=== PATIENT | male | born 2005 | race Caucasian/White ===

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

== ENCOUNTER 2025-04-23 11:17 | Emergency (ER) | payer BC, SELFPAY ==
[2025-04-23 11:22] VITALS: BP 142/82; PULSE 68; RESP 18; TEMP 37; O2SAT 100; BMI 18.5
--- OUTSIDE RECORDS SUMMARY | 2025-04-23 11:23 | XMS_ITS | Clinical Summary ---
Author Organization [facility] Address [facility] [place] [address] Care Team Providers Care Tube Room Cashier Name Role Phone Sreekanth Wilkes MD Primary Care Provider [phone] Allergies No known active allergies Medications lisdexamfetamine 30 mg capsuleIndications :ADHD (attention deficit hyperactivity disorder), inattentive type Take 1 Capsule (30 mg) by mouth once daily. 30 Capsule 5 Active Active Problems Problem Noted Date Diagnosed Date ADHD (attention deficit hype ractivity disorder), inattentive type 09/10/2015 Allergy, unspecified not elsewhere classified Overview (11/23/2007): Large local reaction to bug bites Resolved Problems Problem Noted Date Diagnosed Date Resolved Date Molluscum contagiosum 07/13/20112024 Toxic effect of venom(989.5) 11/23/2007 11/30/2024 Encounters Date Type Department Care Team Description 04/23/2025 Nurse Triage [facility] [address] [place] [address] Sreekanth Wilkes MD Chest Pain/problem (Clicking during heart beat audible over phone) from Last 3 Months Immunizations Immunization Administration Dates Next Due AMB Influenza, IIV4 PF (=>6 mos Flulaval,Fluzone Fluarix)(Flu Clinic Only) 06/14/2014 COVID-19 vaccine ([place] NTech 30mcg/0.3mL) PF, MDV 12/06/2020,11/15/2020,11/15/2020 DTaP 03/05/2006 [id number] (Pediarix) 05/22/2005,03/19/2005,0 01/15/2005 DTaP-IPV (Kinrix) 11/18/2009 HIB HbOC (HibTITER) 03/05/2006 HIB PRP-T (ActHIB,Hiberix) 03/19/2005,01/15/2005 HPV 9 (Gardasil 9) 11/09/2016,03/16/2016, 016 Hepatitis A (Peds) 06/25/2008,11/21/2007 Influenza Virus, Unspecified 04/17/2013 Influenza, IIV3 (Age 6-35 mos) 05/17/2006 Influenza, IIV3 (Age >=3 years) 04/13/20 11,05/24/2010,05/22/2008,06/16 Influenza, IIV4 05/08/2022, 8,06/11/2017,03/16 Influenza,LAIV3 Live Intrana xiao (Flumist) 05/05/2012,03/29/2009 Influenza,LAIV4 Live Intrana xiao (Flumist) 06/18/2015 MENINGOCOCCAL VACCINE 2 VIAL [id number] (MENVEO) 11/14/2021,01/17/2016 MMR 11/18/2009,11/17/2005 Pneumococcal conj 7-Valent (Prevnar 7) 0 03/05/2006,05/22/2005,03/19/2005,01/15 Tdap 01/17/2016 Varicella Vaccine 11/18/2009,11/17/2005 Family History Medical History Relation Name Comments Good Health Brother Psychiatric illness Father possible adhd Psychiatric illness Maternal Aunt adhd Good Health Mother Psychiatric illness Other maternal cousins Good Health Sister Heart Disease No Family History Relation Name Status Comments Brother Father Maternal Aunt Mother Other Sister Social History Tobacco Use Types Packs/Day Years Used Date Smoking Tobacco: Never Passive Smoke Exposure: Never Smokeless Tobacco: Never Tobacco Cessation:Counseling Given: Not Answered Comments:no exposure Alcohol Use Standard Drinks/Week Comments Yes 0 (1 standard drink = 0.6 oz pur e alcohol) Once or twice a month PHQ-2 Answer Date Recorded PHQ-2 TOTAL SCORE 0 11/30/2024 Social Connections Answer Date Recorded Do you often feel lonely or isolated from those around you? 0 11/30/2024 Alcohol Use Answer Date Recorded How often do you have a drink containing alcohol ? 3 11/30/2024 How many drinks containing a lcohol do you have on a typical day when you are drinking? 0 11/30/2024 How often do you have five or more drinks on one occasion? 2 11/30/2024 Financial Resource Strain Answer Date R ecorded Difficulty of Paying Living Expenses 3 11/28/2023 Difficulty of Paying Living Expenses Not on file 11/28/2023 Food Insecurity Answer Date Recorded Do you worry your food will run out before you are able to buy more? 1 11/30/2024 Transportation Needs Answer Date Record ed Does lack of transportation keep you from medica l appointments? 1 11/30/2024 Does lack of transportation keep you from work, meetings or getting things that you need? 1 11/30/2024 Housing Stability Answer Date Recorded What is your housing situation today? 1 11/30/2024 Utilities Answer Date Recorded Do you have trouble paying f or utilities (for example, heat, electricity, water, phone)? 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 Gender Identity Not on file Sexual Orientation Not on file Obstetrics History Last Filed Vital Signs Vital Sign Reading Time Taken Comments Blood Pressure 103/55 11/30/2024 10:30 AM CDT Pulse 48 11/30/2024 10:30 AM CDT Temperature 36.8 C (98.2 F) 11/28/2023 11:59 AM CDT Respiratory Rate 14 11/28/2023 11:5 9 AM CDT Oxygen Saturation 99% 11/30/2024 10: 30 AM CDT Inhaled Oxygen Concentration - - Weight 73.9 kg (162 lb 14.4 oz) 025 10:30 AM CDT Height 203.5 cm (6' 8.12) 11/30/2024 1 0:30 AM CDT Body Mass Index 17.84 11/30/2024 10:30 AM CDT Plan of Treatment Health Maintenance Due Date Last Done Comments COVID-19 vaccine series ( season) 2025 07/09/2021, 12/06/2020, 11/15/2020, Additional history exists Influenza Vaccine (#1) 2025 , 05/31/2018, 06/11/2017, Additional history exists BMI (ht and wt on same day) for age 18+ 11/30/2025 11/30/2024 Depression screening for age 12+ 11/30/2025 11/30/2024, 11/14/2021, 03/15/2021, Additional history exists Well Child Check for age 3-20 11/30/2025 11/30/2024, 11/14/2021, 10/01/2020, Additional history exists Tetanus booster 01/16/2026 01/17/2016 RSV vaccine for adults or (1 - 1-dose 75+ series) 11/14/2079 Hepatitis B series for 19+ Completed 05/22, 03/19/2005, 01/15/2005 Pneumococcal series for age 6-49 Aged Out 03/05/2006, 05/22/2005, 03/19/2005, Additional history exists No longer eligible based on patient's age to complete this topic HPV series for age 9-45 Completed 11/10/19 17, 03/16/2016, 01/17/2016 Meningococcal series for age 11-21 Completed 11/14/2021, 01/17/2016 HIV for age 15-65 Completed 11/30/2024 Hepatitis C screening for age 18-79 Completed 11/30/2024 Procedures Procedure Name Priority Date/Time Associated Diagnosis Comments ANTI HIV 1/2 Routine 11/30/2024 11:09 AM CDT Screening for HIV (human immunodeficiency virus) ANTI HCV Routine 11/30/2024 11:09 AM CDT Need for hepatitis C screening test from Last 3 Months or Most Recently Relevant to Health Maintenance Results * ANTI HCV (11/30/2024 11:09 AM CDT) HEPATITIS C ANTIBODY NON-REACTI VE NON-REACT PS [facility] Comment: HCV antibody was non-reactive. There is no laboratory evidence of HCV infection. In most cases, no further action is required. However, if recent HCV exposure is suspected, a test for HCV RNA (test code 82800) is suggested. For additional information please refer to http://[employer]/faq/BWN92b7 (This link is being provided for informational/ educational purposes only.) Blood BLOOD SPECIMEN / Unknown 11/30/2024 11:09 AM CDT 11/30/2024 11:10 AM CDT Sreekanth Wilkes MD SEND OUTS Final Resu lt [employer] [facility] [address] [place] [address], [facility] [address] [place] [address] * ANTI HIV 1/2 [32252.0] (11/30/2024 11:09 AM CDT) Pathologist [facility] HIV AG/AB, 4TH GEN NON-REACT SP NON-REACT SP [facility] Comment: HIV-1 antigen and HIV-1/HIV-2 antibodies were not detected. There is no laboratory evidence of HIV infection. PLEASE NOTE: This information has been disclosed to you from records whose confidentiality may be protected by state law. If your state requires such protection, then the state law prohibits you from making any further disclosure of the information without the specific written consent of the person to whom it pertains, or as otherwise permitted by law. A general authorization for the release of medical or other information is NOT sufficient for this purpose. For additional information please refer to http://[employer]/faq/EXA455 (This link is being provided for informational/ educational purposes only.) The performance of this assay has not been clinically validated in patients less than 2 years old. Blood BLOOD SPECIMEN / Unknown 11/30/2024 11:09 AM CDT 11/30/2024 11:10 AM CDT Sreekanth Wilkes MD SEND OUTS Final Resu lt [facility] [address] [place] [address], [facility] [address] [place] [address] from Last 3 Months or Most Recently Relevant to Health Maintenance Insurance [employer] [facility] [employer] [facility] BLUE CROSS OF NON-CT-ITS Care Teams Tube Room Cashier Relationship Specialty Start Date End Date Sreekanth [place] [place] [address] PCP - General Family Practice 07/21/13
[2025-04-23 11:56] LABS: Troponin, Point-of-Care* 0.00 ng/ml (0.01-0.04)
--- NOTE | 2025-04-23 12:48 | ED_ITS ---
HPI - Chest Pain General Chief Complaint: Chest Pain Stated Complaint: Chest pains Time Seen by Provider: 04/23/25 11:35 History of Present Illness HPI narrative: This 19-year-old male comes in with his parents reporting some left sternal chest pain over the past few days. He does not have any nausea, vomiting, lightheadedness, shortness of breath, or diaphoresis. He has good exercise tolerance. He states that the pain is reproducible with taking a deep breath. He states that he does vape nicotine quite a bit. He and his family called the triage nurse and was told to come here for evaluation. Related Data Home Medications ?Medication ?Instructions ?Recorded ?Confirmed lisdexamfetamine 30 mg capsule 30 mg PO DAILY 04/23/25 04/23/25 (Vyvanse) Allergies Allergy/AdvReac Type Severity Reaction Status Date / Time No Known Drug Allergies Allergy Verified 04/23/25 11:29 Review of Systems Status of ROS Reports: 10 or more systems reviewed and unremarkable except as noted in History and below Narrative Constitutional: No fevers, no weight gain or loss. Eyes: No discharge. No vision changes. HENT: No congestion, no sore throat, no ear pain. Cardiovascular: No palpitations. Respiratory: No shortness of breath, no wheezes, no cough. Gastrointestinal: No abdominal pain, no vomiting, no diarrhea. Genitourinary: No dysuria, no hematuria. Musculoskeletal: Normal range of motion. Skin: No rashes, no pruritis. Neurological: No dizziness, weakness, sensory change, speech change. Endo/Heme/Allergies: No bruising or bleeding. No polydipsia. Pysch: no suicidality, no anxiety, no insomnia. All other systems reviewed and are negative. [facility] Medical History (Updated 04/23/25 @ 12:53 by Douglas Peña MD) Nicotine use ?Z72.0 - Tobacco use (ICD-10) Need for prophylactic measure ?Z29.9 - Encounter for prophylactic measures, unspecified (ICD-10) Puncture wound ?T14.8XXA - Other injury of unspecified body region, initial encounter (ICD- 10) Exam Narrative Exam Narrative: Constitutional: Well-developed, well-nourished, no acute distress. HEENT: Normocephalic, atraumatic. Neck: Normal range of motion. Nontender. Supple. Heart: Regular. No murmurs. Normal rate. Intact distal pulses. Lungs: Clear to auscultation. No wheezes, rhonchi, or rales. He does have a few abrasions across his chest which he states occurred from falls well skateboarding. Abdomen: Normal bowel sounds. Nontender. No rebound tenderness. Genitalia: Deferred. Back: No midline tenderness. Normal range of motion. Extremities: Normal range of motion. No injury. Skin: Intact. No rash. Warm. No erythema or pallor. Neurologic: No altered sensation. No weakness. Alert and oriented. Psychiatric: No suicidality. No anxiety or depression. No insomnia. Nursing notes and vitals signs are reviewed. Const Vital Signs, click to edit/add: Vital Signs - 24 hr 04/23/25 11:22 Temperature 98.6 F Pulse Rate [Right Pulse Oximeter] 68 Respiratory Rate 18 Blood Pressure [Right Upper Arm] 142/82 H Pulse Oximetry 100 Oxygen Delivery Method Room Air Course Vital Signs Vital signs: Initial Vital Signs Temperature 98.6 F 04/23/25 11:22 Temperature Source Temporal Artery Scan 04/23/25 11:22 Pulse Rate 68 04/23/25 11:22 Pulse Rhythm Regular 04/23/25 11:22 Pulse Strength 3+ Normal 04/23/25 11:22 Respiratory Rate 18 04/23/25 11:22 Blood Pressure 142/82 H 04/23/25 11:22 Blood Pressure Mean 102 04/23/25 11:22 Blood Pressure Position Sitting 04/23/25 11:22 Pulse Oximetry 100 04/23/25 11:22 Oxygen Delivery Method Room Air 04/23/25 11:22 Vital Signs Temperature 98.6 F 04/23/25 11:22 Pulse Rate 68 04/23/25 11:22 Respiratory Rate 18 04/23/25 11:22 Blood Pressure 142/82 H 04/23/25 11:22 Pulse Oximetry 100 04/23/25 11:22 Oxygen Delivery Method Room Air 04/23/25 11:22 Temperature 98.6 F 04/23/25 11:22 Pulse Rate 68 04/23/25 11:22 Respiratory Rate 18 04/23/25 11:22 Blood Pressure 142/82 H 04/23/25 11:22 Pulse Oximetry 100 04/23/25 11:22 Oxygen Delivery Method Room Air 04/23/25 11:22 MDM - Chest Pain MDM Narrative Medical decision making narrative: This patient comes in with reproducible chest pain typical of chest wall pain. He does have some abrasions from falls while skateboarding that occurred a few days before these symptoms arose. EKG is reassuring as is his troponin level at 0. He is okay to be discharged home. Lab Data Labs: Lab Results 04/23/25 Range/Units 11:56 POC Troponin I 0.00 L (0.01-0.04) ng/ml ECG Data Attestation: I personally reviewed and interpreted this ECG as follows: Interpretation: Normal sinus rhythm. Rate is 70 beats per minute. Diffuse ST elevation likely due to early repolarization. Discharge Plan Discharge Clinical Impression: Acute chest wall pain Patient Disposition: Home, Self-Care Condition: Stable Additional Instructions: Use [id number] medicines as needed and directed. Follow up with MD return if worsening. Prescriptions: No Action lisdexamfetamine [Vyvanse] 30 mg capsule 30 mg PO DAILY Follow Up/Referrals: Provider,Not a Local [Primary Care Provider, Family Practice] Stand Alone Forms: [employer] Info Instructions
== END 2025-04-23 13:13 | disposition home or self-care (01) ==
LOC: ED 13:08
PROVIDERS: Emergency Provider Emergency Medicine Emergency Medical Services
DX: R07.89 Other chest pain (principal)
CPT/HCPCS: 36415; 84484; 93005; 99284